=== PATIENT | male | born 2000 | race African-American/Black ===

== ENCOUNTER 2022-06-18 18:57 | Emergency (ER) | payer OTHER, SELFPAY ==
[2022-06-18 19:46] LABS: ALT (SGPT) 23 U/L (8-55); AST (SGOT) 39 U/L (5-34); Albumin 5.3 g/dL (3.5-5.0); Alkaline Phosphatase 51 U/L (40-110); Anion Gap 23 mmol/L (10-20); BUN (Urea Nitrogen) 12 mg/dL (8.9-20.6); Bilirubin, Total 1.4 mg/dL (0.2-1.2); CK (CPK) 907 U/L (30-200); Calc. Creatinine Clearance 0 mL/min (70-130); Calcium 10.5 mg/dL (7.8-10.44); Carbon Dioxide 22 mmol/L (22-29); Chloride 98 mmol/L (98-107); Estimated GFR 45; Globulin 3.5 g/dL (2.4-3.5); Glucose 115 mg/dL (70-105); Potassium 3.5 mmol/L (3.5-5.1); Protein, Total 8.8 g/dL (6.0-8.3); Sodium 139 mmol/L (136-145)
== END 2022-06-18 20:54 | disposition home or self-care (01) ==
LOC: CSHERS 18:57
DX: E86.0 Dehydration (principal)
CPT/HCPCS: 36415; 80053; 82550; 93005; 96360

== ENCOUNTER 2022-08-17 16:52 | Emergency (ER) | payer SELFPAY ==
[2022-08-17 17:21] LABS: Hemoglobin 18.6 g/dL (13.5-17.5); Mean Corpuscular HGB CONC 34.4 g/dL (32.0-36.0); Mean Corpuscular Hemoglobin 29.1 pg (27.0-33.0); Mean Corpuscular Volume 84.7 fl (81.2-95.1); Mean Platelet Volume 13.1 fl (7.4-10.4); Platelet Count 309 10x3/uL (150-450); RBC Distribution Width 12.1 % (11.5-14.5); Red Blood Cell (RBC) Count 6.39 10x6/uL (4.32-5.72); White Blood Cell (WBC) Count 8.5 10x3/uL (3.5-10.5)
[2022-08-17 17:38] LABS: ALT (SGPT) 34 U/L (8-55); AST (SGOT) 53 U/L (5-34); Acetaminophen Less than 10.0 mcg/mL (10.0-30.0); Alcohol Less than 10 mg/dL (Less than 10); Alkaline Phosphatase 74 U/L (40-110); Anion Gap 33 mmol/L (10-20); BUN (Urea Nitrogen) 13 mg/dL (8.9-20.6); Bilirubin, Total 1.2 mg/dL (0.2-1.2); CK (CPK) 759 U/L (30-200); Calc. Creatinine Clearance 0 mL/min (70-130); Carbon Dioxide 14 mmol/L (22-29); Chloride 102 mmol/L (98-107); Estimated GFR 39; Glucose 158 mg/dL (70-105); Magnesium 2.6 mg/dL (1.6-2.6); Potassium 3.2 mmol/L (3.5-5.1); Salicylate Less than 8.0 mg/dL (15.0-30.0); Sodium 146 mmol/L (136-145)
[2022-08-17 17:43] LABS: MDiff Complete? YES
[2022-08-17 17:44] LABS: Band 1 % (5-11); Eosinophils 1 % (0-10); Lymphocytes 75 % (21-51); Monocytes 4 % (0-10); Neutrophil 19 % (42-75)
[2022-08-17 17:45] LABS: Platelet Morphology Comment Appears Adequate
[2022-08-17 17:52] LABS: Albumin Greater than 6.2 g/dL (3.5-5.0); Calcium 13.2 mg/dL (7.8-10.44); Protein, Total Greater than 12.0 g/dL (6.0-8.3)
[2022-08-17 18:50] LABS: Bilirubin Neg (Negative); Blood, Urine 25 (Negative); Clarity Clear (Clear); Glucose, Urine (Dipstick) Normal (Negative); Ketone, Urine 5 mg/dL (Negative); Leukocyte 25 (Negative); Nitrite Negative (Negative); Protein, Urine (Dipstick) 100 mg/dl (Neg-Trace)
[2022-08-17 18:58] LABS: Amphetamine Not Detected (NotDetected); Barbiturates Screen Not Detected (NotDetected); Benzodiazepine Screen Not Detected (NotDetected); Cocaine Metabolite Screen Not Detected (NotDetected); Methadone Not Detected (NotDetected); Methamphetamine Not Detected (NotDetected); Opiate Screen Not Detected (NotDetected); Oxycodone Screen Not Detected (NotDetected); Phencyclidine (PCP) Not Detected (NotDetected); THC/Cannabinoid Screen Detected (NotDetected); Tricyclic Screen Not Detected (NotDetected)
[2022-08-17 19:02] LABS: Bacteria/HPF 2+ HPF (None Seen); Mucous/LPF 3+ LPF (<2+); RBC/HPF 0-3 HPF (0-3); Squamous Epithelial 0-3 HPF (0-3); WBC/HPF 0-3 HPF (0-3)
== END 2022-08-17 19:05 | disposition home or self-care (01) ==
LOC: CSHERS 16:52
DX: R55 Syncope and collapse (principal); E86.0 Dehydration
CPT/HCPCS: 36415; 71045; 80053; 80306; 80307; 81003; 81015; 82550; 83605; 83735; 85025; 93005; 96360; 96361